=== PATIENT | female | born 1980 | race Caucasian/White ===

== ENCOUNTER 2017-01-23 15:17 | Emergency (ER) | payer MEDICAID, OTHER ==
[~2017-01-23] VITALS: Ht 167.6 cm; Wt 69.0 kg
[~2017-01-23 15:17] MED LIST: ALBUAER3 INH; BUSP10TA PO; CALC1TAB12 PO; CARB200T PO; LISI10TA3 PO; LORA1TAB12 PO; MOBI15TA PO; OLAN20TA PO; PRAZ5CAP PO; PROZ20CA11 PO; QUET1TAB10 PO; QUET1TAB8 PO; SERT-129 PO; TRAM50TA PO; TRAZ300T2 PO
[2017-01-23] MEDS ORDERED: IOHEXOL 350 MG/ML 10 ML VIAL (for RAD DIAG) IVCONTRAST ONE (15:18)
[2017-01-23 15:21] VITALS: BP 137/83; PULSE 63; RESP 16; O2SAT 97
[2017-01-23] MEDS ORDERED: ONDANSETRON HCL 4 MG/2 ML VIAL IV PUSH ONE (15:45)
[2017-01-23] MEDS ORDERED: MORPHINE SULFATE 4 MG/ML INJ IV PUSH ONE (15:45)
--- NOTE | 2017-01-23 15:58 | PD ---
HPI Chief Complaint: Abdominal Pain Time Seen by Provider: 15:27 Travel History International Travel<30 days: No Contact w/Intl Traveler<30days: No Traveled to known affect area: No History of Present Illness HPI 36-year-old female that presents to the ED for evaluation of right upper quadrant pain. Patient was seen at the [facility] ED and was sent here for possible ultrasound versus CAT scan for concern for possible gallbladder stone stuck on the collecting duct. Patient had lap cholecystectomy about a year ago and has had no issues since. Patient has been having pain in the right upper quadrant for about a month that wraps to the back. She denies any fevers chills or sweats. No chest pain or shortness of breath. No other medical issues. She states that the pain still 7 out of 10. She was evaluated and sent here for evaluation. Please refer to the previous providers note. PFSH Past Medical History Anxiety: Yes Depression: Yes Cardiovascular Problems: Yes (HTN) High Cholesterol: Yes Diminished Hearing: No Hypertension: Yes Immunizations Current: Yes Seizures: Yes Influenza Vaccination: Yes ?: Unknown Past Surgical History Appendectomy: Yes Cholecystectomy: Yes Hysterectomy: Yes (PARTIAL) Social History Alcohol Use: No Tobacco Use: Yes (1 ppd) Substance Use: No Allergies-Medications (Allergen,Severity, Reaction): Coded Allergies: cephalexin (Unverified Allergy, Severe, swelling of hands, 01/23/17) Reported Meds & Prescriptions Reported Meds & Active Scripts Active Lortab (Hydrocodone-Acetaminophen) 5-325 Mg Tab 1 Tab PO Q6H PRN Reported Calcium 500 +D (Calcium Carbonate-Cholecalciferol) 500-400 Mg-Unit Tab 4 Tab PO BID Tramadol (Tramadol HCl) 50 Mg Tab 50 Mg PO Q6H PRN Lisinopril 10 Mg Tab 10 Mg PO DAILY Mobic (Meloxicam) 15 Mg Tab 15 Mg PO DAILY Lorazepam 1 Mg Tab 1 Mg PO TID Olanzapine 20 Mg Tab 20 Mg PO DAILY Prozac (Fluoxetine HCl) 20 Mg Cap 20 Mg PO DAILY Review of Systems Except as stated in HPI: all other systems reviewed are Neg Physical Exam Narrative GENERAL: SKIN: Warm and dry. HEAD: Atraumatic. Normocephalic. EYES: Pupils equal and round. No scleral icterus. No injection or drainage. ENT: No nasal bleeding or discharge. Mucous membranes pink and moist. Tongue is midline. No uvula deviation. NECK: Trachea midline. No JVD. CARDIOVASCULAR: Regular rate and rhythm. No murmurs, S3, S4. RESPIRATORY: No accessory muscle use. Clear to auscultation. Breath sounds equal bilaterally. GASTROINTESTINAL: Abdomen soft, RUQ tenderness to palpation, nondistended. Hepatic and splenic margins not palpable. MUSCULOSKELETAL: Extremities without clubbing, cyanosis, or edema. No obvious deformities. Full range of motion of the upper and lower extremities bilaterally. 2+ pulses bilaterally. NEUROLOGICAL: Awake and alert. No obvious cranial nerve deficits. Motor grossly within normal limits. Five out of 5 muscle strength in the arms and legs. Normal speech. PSYCHIATRIC: Appropriate mood and affect; insight and judgment normal. Data Data Last Documented VS Vital Signs Date Time Temp Pulse Resp B/P (MAP) Pulse Ox O2 Delivery O2 Flow Rate FiO2 01/23/17 18:46 66 116/74 (88) 01/23/17 16:38 18 97 Room Air Orders Orders Us Abdomen Gallbladder (01/23/17 ) Ct Abd/Pel W Iv Contrast(Rout) (01/23/17 15:39) Morphine Inj (Morphine Inj) (01/23/17 15:45) Ondansetron Inj (Zofran Inj) (01/23/17 15:45) Ed Urine Pregnancytest Poc (01/23/17 15:56) Iohexol 350 Inj (Omnipaque 350 Inj) (01/23/17 15:18) Ed Discharge Order (01/23/17 18:52) [facility] Medical Decision Making Medical Screen Exam Complete: Yes Emergency Medical Condition: Yes Medical Record Reviewed: Yes Interpretation(s) Last Impressions Abdomen/Pelvis CT 01/23/17 1539 Signed Impressions: Service Date/Time: Monday, January 23, 2017 17:46 - CONCLUSION: 1. 4.1 x 3.8 cm soft tissue mass in the right side of the pelvis which could represent an ovarian tumor. There is a small to moderate amount of fluid in the pelvis. The patient is status post hysterectomy. 2. Moderate hepatic steatosis. 3. Status post cholecystectomy. Rod Morris MD Gall Bladder Ultrasound 01/23/17 0000 Signed Impressions: Service Date/Time: Monday, January 23, 2017 15:58 - CONCLUSION: 1. Hepatomegaly without focal lesion. 2. Normal dimension common hepatic duct. Christophe Blanton MD Differential Diagnosis Upper quadrant pain versus gallbladder stone versus cholecystitis versus cholelithiasis versus kidney stone versus normal exam Narrative Course 36-year-old female that presents to the ED for evaluation of right upper quadrant pain. Patient was properly examined by the previous provider in [facility]. Sent here for evaluation. Ultrasound and CAT scan ordered. Patient was given IV pain medication. Labs were benign at the [facility] Case discussed in my attending Dr Kc who recommends CT as well as the ultrasound. Ultrasound and CAT scan showed hepatic acidosis and hepatomegaly as well as appears to be a mass to the right ovary. Case was discussed in my attending who recommends follow-up outpatient. He wanted me to speak with [employer] PERSON on-call Dr. Mcgregor who agreed the patient can follow-up outpatient. This was discussed with the family and patient were in agreement with plan. Happy with care. Patient was given a short prescription for Lortab for pain. See ED worsening symptoms. Follow-up with [facility] as well as PCP. Diagnosis Primary Impression: RUQ abdominal pain Additional Impression: Ovarian mass, right Patient Instructions: General Instructions, Narcotic given in the ED Additional Instructions: Take medications as prescribed. Follow-up with PCP and [facility]K INTERVIEWER See ED for any worsening symptoms. Do not drink or drive while taking pain medication. Apply ice or heat as needed for pain Med/Other Pt SpecificInfo: Prescription(s) given Scripts Hydrocodone-Acetaminophen (Lortab) 5-325 Mg Tab 1 TAB PO Q6H Y for PAIN, #12 TAB 0 Refills Prov: Gil Kc MD 01/23/17 Disposition: 01 DISCHARGE HOME Condition: Stable Nate Mendoza Jan 23, 2017 15:58
[2017-01-23 16:38] VITALS: BP 114/74; PULSE 74; RESP 18; O2SAT 97
--- NOTE | 2017-01-23 17:09 | RADRPT ---
EXAM DATE/TIME: 01/23/2017 15:58 [facility] COMPARISON: No previous studies available for comparison. INDICATIONS : Right upper quadrant pain. MEDICAL HISTORY : Hypertension. Hypercholesterolemia. Seizures. Depression. Anxiety. SURGICAL HISTORY : Appendectomy. Cholecystectomy. Hysterectomy. ENCOUNTER: Initial ACUITY: 2 days PAIN SCORE: 8/10 LOCATION: Right upper quadrant MEASUREMENTS: LIVER: 17.5 cm length COMMON DUCT: 7 mm RIGHT KIDNEY: 10.1 x 3.9 x 3.7 cm FINDINGS: LIVER: Fairly homogeneous but coarse echotexture without focal lesion or ductal dilatation. Hepatopedal todd w seen in the portal vein. COMMON DUCT: No intraluminal mass or stone visualized. GALLBLADDER: Cholecystectomy PANCREAS: The visualized portions are within normal limits. RIGHT KIDNEY: No evidence of hydronephrosis, stone, or mass. CONCLUSION: 1. Hepatomegaly without focal lesion. 2. Normal dimension common hepatic duct. Christophe Blanton MD on January 23, 2017 at 17:07 Board Certified Radiologist. This report was verified electronically.
--- NOTE | 2017-01-23 18:09 | RADRPT ---
EXAM DATE/TIME: 01/23/2017 17:46 [facility] COMPARISON: No previous studies available for comparison. INDICATIONS : Right upper quadrant pain IV CONTRAST: 76 cc Omnipaque 350 (iohexol) IV ORAL CONTRAST: No oral contrast ingested. RADIATION DOSE: 6.71 CTDIvol (mGy) MEDICAL HISTORY : Hypertension. SURGICAL HISTORY : Appendectomy. Cholecystectomy. Hysterectomy. ENCOUNTER: Initial ACUITY: 1 day PAIN SCALE: 9/10 LOCATION: Right Abdomen TECHNIQUE: Volumetric scanning of the abdomen and pelvis was performed. Using automated exposure control and ad justment of the mA and/or kV according to patient size, radiation dose was kept as low as reasonably achievable to obtain optimal diagnostic quality images. DICOM format image data is available electro nically for review and comparison. FINDINGS: LOWER LUNGS: The visualized lower lungs are clear. LIVER: Homogeneous density without lesion. There is no dilation of the biliary tree. Status post cholecyste ctomy. There is moderate hepatic steatosis. SPLEEN: Normal size without lesion. PANCREAS: Within normal limits. KIDNEYS: Normal in size and shape. There is no mass, stone or hydronephrosis. ADRENAL GLANDS: Within normal limits. VASCULAR: There is no aortic aneurysm. BOWEL/MESENTERY: The stomach, small bowel, and colon demonstrate no acute abnormality. There is no free intraperitone al air or fluid. ABDOMINAL WALL: Within normal limits. RETROPERITONEUM: There is no lymphadenopathy. BLADDER: No wall thickening or mass. REPRODUCTIVE: Status post hysterectomy. There is a small to moderate amount of fluid in the pelvis with a 4.1 x 3.8 cm soft tissue mass in the right side of the pelvis. This is not well-defined. INGUINAL: There is no lymphadenopathy or hernia. MUSCULOSKELETAL: Within normal limits for patient age. CONCLUSION: 1. 4.1 x 3.8 cm soft tissue mass in the right side of the pelvis which could represent an ovarian cash or. There is a small to moderate amount of fluid in the pelvis. The patient is status post hysterecto my. 2. Moderate hepatic steatosis. 3. Status post cholecystectomy. Rod Morris MD on January 23, 2017 at 18:04 Board Certified Radiologist. This report was verified electronically.
[2017-01-23 18:46] VITALS: BP 116/74; PULSE 66
[2017-01-23] MEDS ORDERED: HYDR-3533 PO (18:51)
== END 2017-01-23 19:09 | disposition home or self-care (01) ==
LOC: NEPE 15:17
DX: R10.11 Right upper quadrant pain (principal); N83.9 Noninflammatory disorder of ovary, fallopian tube and broad ligament, unspecified
CPT/HCPCS: 71020; 74177; 76705; 80053; 81001; 83690; 84703; 85025; 96372; 96374; 96375; 99285; J1885; J2270; J2405; J7030; Q9967

== ENCOUNTER 2017-07-02 16:29 | Emergency (ER) | payer MEDICAID ==
[~2017-07-02] VITALS: Ht 167.6 cm; Wt 70.0 kg
[~2017-07-02 16:29] MED LIST changes: -ALBUAER3 INH; -BUSP10TA PO; -CARB200T PO; +HYDR-3533 PO; -PRAZ5CAP PO; -QUET1TAB10 PO; -QUET1TAB8 PO; -SERT-129 PO; -TRAZ300T2 PO
[2017-07-02 16:35] VITALS: BP 145/83; PULSE 108; RESP 20; TEMP 98.8; O2SAT 97
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
[2017-07-02] MEDS ORDERED: oxyCODONE/ACETAMINOPHEN 5 MG/325 MG TAB PO ONE (17:30)
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
[2017-07-02] MEDS ORDERED: IBUP-232 PO (17:53)
[2017-07-02 18:01] VITALS: BP 141/92; PULSE 105; RESP 18; O2SAT 100
== END 2017-07-02 18:12 | disposition home or self-care (01) ==
LOC: PHED 16:29
DX: S00.83XA Contusion of other part of head, initial encounter (principal); S50.11XA Contusion of right forearm, initial encounter; Y04.0XXA Assault by unarmed brawl or fight, initial encounter; I10 Essential (primary) hypertension; E78.00 Pure hypercholesterolemia, unspecified; F32.9 Major depressive disorder, single episode, unspecified; F41.9 Anxiety disorder, unspecified; F17.200 Nicotine dependence, unspecified, uncomplicated
CPT/HCPCS: 70450; 70486; 72125; 73090; 99284